=== PATIENT | female | born 1945 | race Caucasian/White ===

== ENCOUNTER 2019-05-11 14:12 | Emergency (ER) | payer MEDICARE ==
--- OUTSIDE RECORDS SUMMARY | 2019-05-11 14:38 | XMS REPORT | Continuity of Care Document ---
:1945 External Reference #:[id number] Author Name Alok Higgins DO Address [address] [place] [address] Care Team Providers Name Role Phone Luisa Carlos MD - Cardiovascular Care Team Information Automobile Designer Disease Abe Browning MD - Neurology Care Team Information Automobile Designer [phone] [facility]-Ray Care Team Information Automobile Designer [phone] [facility] Care Team Information Automobile Designer Unavailable Problems Active Problems Provider Date Aortic valve disorder Alok Higgins DO Onset: 09/15/2012 Mixed hyperlipidemia Alok Higgins DO Onset: 09/15/2012 Low back pain Alok Higgins DO Onset: 08/18/2012 Tobacco user Alok Higgins DO Onset: 08/18/2012 Benign essential hypertension Alok Higgins DO Onset: 08/18/2012 Gastroesophageal reflux disease Alok Higgins DO Onset: 08/18/2012 Depressive disorder Alok Higgins DO Onset: 08/18/2012 Epilepsy Alok Higgins DO Onset: 08/18/2012 Insomnia Alok Higgins DO Onset: 08/18/2012 Pure hypercholesterolemia Alok Higgins DO Onset: 05/27/2014 Peptic reflux disease Randi Morales PA Onset: 07/19/2014 Transient cerebral ischemia Alok Higgins DO Onset: 08/09/2014 Hypertensive disorder Onset: 03/08/2015 Right inguinal hernia Onset: 02/05/2015 Aortic valve stenosis Onset: 03/01/2014 Congestive heart failure Onset: 03/01/2014 Chest pain Onset: 03/01/2014 Coronary arteriosclerosis Onset: Intestinal obstruction Onset: Hiatal hernia Onset: Kidney stone Onset: Anemia Onset: Congestive heart failure Onset: Sciatica Onset: Inguinal hernia Onset: Social History Type Date Description Comments Sex Unknown Tobacco Use Start: Unknown End: Former Cigarette Smoker 1/2 Unknown Pack Daily ETOH Use Denies alcohol use Recreational Drug Use Denies Drug Use Tobacco Use Start: Unknown Patient has never smoked Smoking Status Reviewed: 05/04/18 Patient has never smoked Allergies, Adverse Reactions, Alerts Active Allergies Reaction Severity Comments Date Morphine 08/18/2012 Latex 08/18/2012 Elastic 05/27/2014 Lipitor 03/02/2014 Erythromycin Nausea And Vomiting 03/01/2014 Morphine And Related Anaphylaxis, Itching Severe 03/01/2014 Cymbalta Disoriented 08/02/2015 Venlafaxine 05/12/2018 Zoloft 05/18/2018 Medications Active Medications SIG Qnty Indications Ordering Date Provider Famotidine take 1 tablet 60tabs Alok Higgins, 03/16/2019 20mg Tablets by mouth twice DO a day Oxycodone HCL 1-2 by mouth 360tabs Alok Higgins, 12/30/2018 5mg Tablets every 4 hours DO as needed severe pain Vitamin D (Ergocalciferol) take one 12caps Alok Higgins, 10/12/2018 [place] [id number] Capsules mouth every week Losartan Potassium Take One 90tabs Alok Higgins, 09/19/2018 100mg Tablets Tablet By DO Mouth Every Day Bupropion Hydrochloride ER Take One 90tabs F33.1 Alok Higgins, 2018 (XL) Tablet By DO 300mg Tablets ER 24HR Mouth Every Day Metoprolol Succinate ER Take One 90tabs I10 Alok Higgins, 07/31/2016 100mg Tablet By DO Tablets ER 24HR Mouth Every Day Tizanidine HCL take one 180tabs Alok Higgins, 09/18/2014 4mg Tablets tablet by DO mouth twice a day as needed for muscle spasm Aspirin 1 by mouth OTC G45.9 Alok Higgins, 08/09/[address] daily DO Amlodipine Besylate 1 by mouth qd Unknown 10mg Tablets Allergy 24-HR 1 by mouth Unknown 180mg Tablets every day Ezetimibe 1 by mouth Unknown 10mg Tablets every day Hydrochlorothiazide 1 by mouth Unknown 25mg Tablets every day Spironolactone 1 by mouth Unknown 25mg Tablets every day Stool Softener 1 by mouth qd Unknown 100mg Capsules History Medications Fluconazole 1 by mouth x 1, 2tabs Alok Higgins, 01/18/2019 - 150mg Tablets then repeat DO 01/30/2019 again 5 days later if needed. Nitrofurantoin Monohyd 1 by mouth twice 14caps Alok Higgins, 2018 - Macro a day DO 10/23/2018 100mg Capsules Immunizations CPT Code Status Date Vaccine Reaction Lot # [id number] Given 03/21/2018 Fluzone Highdose Age 65 And Over Preservative & Antibiotic Free 20944 Given 06/28/2017 Fluzone Highdose Age 65 And Over Preservative & Antibiotic Free 28253 Given 03/17/2016 Prevnar 13 Pneumococal Conjugate Vaccine [facility] 68189 Given 03/17/2016 Fluzone Highdose Age 65 And Over [facility] Preservative & Antibiotic Free 15570 Given 02/14/2014 Pneumococcal 23 Immunization Adult Or Immunosuppressed Patient 31835 Given 02/21/2013 Afluria Or Fluvirin Flu Vac Intramuscular Vital Signs Date Vital Result Comment 03/16/2019 3:23pm Body Temperature 100.4 F Weight 158.00 lb Heart Rate 78 /min BP Systolic 144 mmHg BP Diastolic 80 mmHg Respiratory Rate 20 /min Height 60 inches 5'0" O2 % BldC Oximetry 97 % BMI (Body Mass Index) 30.9 kg/m2 01/30/2019 1:17pm Weight 163.00 lb Heart Rate 60 /min BP Systolic 156 mmHg BP Diastolic 86 mmHg Respiratory Rate 20 /min Height 60 inches 5'0" BMI (Body Mass Index) 31.8 kg/m2 Results Test Acquired Date Facility Test Result H/L Range Note Drugs Of 03/16/2019 [facility] Amphetamines,Ur NEGATIVE <1000 ng/mL Abuse,Urine-[facility] Barbiturates,Urine NEGATIVE <200 ng/mL Benzodiazepines, Urine NEGATIVE <200 ng/mL Bupernorphrine/Norbu,Urine NEGATIVE <10 ng/mL Cocaine Metabolites,Urine NEGATIVE <300 ng/mL Methadone,Urine NEGATIVE <300 ng/mL Opiates,Urine POSITIVE Abnormal <300 ng/mL Oxycodone,Urine POSITIVE Abnormal <100 ng/mL Phencyclidine,Urine NEGATIVE <25 ng/mL Cannabinoids,Urine NEGATIVE <50 ng/mL Laboratory test finding 03/16/2019 [facility] Urine Culture <pending> Basic ([facility]) 01/27/2019 [facility] Sodium 139 mmol/L 135-146 1 Potassium 5.4 mmol/L High 3.5-5.2 Chloride# 109 mmol/L 97-110 2 Carbon Dioxide 21 mmol/L Low 24-34 Glucose 85 mg/dL 70-105 BUN 28 mg/dL High 6-26 Creatinine 1.4 mg/dL 0.5-1.4 Calcium 8.9 mg/dL 8.5-10.5 3 Female Egfr 38 Low >60 4 Male Egfr 50 Low >60 5 Anion Gap 9 mmol/L 5-15 6 Basic ([facility]) 01/13/2019 [facility] Sodium 139 mmol/L 135-146 7 Potassium 4.6 mmol/L 3.5-5.2 Chloride# 105 mmol/L 97-110 8 Carbon Dioxide 24 mmol/L 24-34 Glucose 91 mg/dL 70-105 BUN 28 mg/dL High 6-26 Creatinine 1.8 mg/dL High 0.5-1.4 Calcium 8.6 mg/dL 8.5-10.5 9 Female Egfr 27 Low >60 10 Male Egfr 36 Low >60 11 Anion Gap 10 mmol/L 5-15 12 CBC 01/07/2019 [facility] White Blood Count 12.9 K/uL High 3.1-10.7 13 (315)- - Red Blood Count 3.30 M/uL Low 3.90-5.40 Hemoglobin 10.0 gm/dL Low 11.6-15.8 Hematocrit 30.7 % Low 36.0-46.1 Mean Cell Volume 93.0 fl Normal 80.9-99.0 Mean Corpuscular HGB 30.3 pg Normal 25.9-32.7 Mean Corpuscular HGB Conc 32.6 g/dL Normal 30.8-34.3 Platelet Count 197 K/uL Normal 155-360 Red Cell Distri Width SD 47.9 fl High 36-47 Red Cell Distri Width %CV 14.2 % Normal 11.7-14.4 Mean Platelet Volume 11.5 fl Normal 8.9-12.4 NRBC % 0.0 /100WBC < 10/ 100 WBC Laboratory test 01/07/2019 [facility] Act Partial 33.6 seconds Normal 23.4-35.0 finding (315)- - Thrombo Time Lactic Acid 01/07/2019 [facility] Lactic Acid 1.8 mmol/L Normal 0.4-1.9 14 (315)- - Lab Reflex >2.0 for Sepsis? Y Comprehensive Metabolic 01/07/2019 [facility] Glucose 111 mg/dL High 74-106 Panel (315)- - BUN 35 mg/dL High 7-18 Creatinine 1.9 mg/dL High 0.6-1.3 Glom Filtration Rate, Estimate 28 mL/min >60 If 34 mL/min >60 15 BUN/Creat 18.4 ratio Sodium 139 mmol/L Normal 136-145 Potassium 5.2 mmol/L High 3.5-5.1 Chloride 112 mmol/L High 98-107 Carbon Dioxide 20 mmol/L Low 21-32 Anion Gap 7 mEq/L Low 8-16 Calcium 8.5 mg/dL Normal 8.5-10.1 Total Protein 7.1 g/dL Normal 6.4-8.2 Albumin 3.2 g/dL Low 3.4-5.0 Globulin 3.9 g/dL Normal 1.9-4.3 Alb/Glob 0.8 ratio Bilirubin,Total 0.6 mg/dL Normal 0.2-1.0 Sgot/Ast 13 U/L Low 15-37 16 SGPT/Alt 13 U/L Normal 12-78 Alkaline Phosphatase 102 U/L Normal 45-117 Laboratory test 01/07/2019 [facility] NT-proBNP 4039.0 pg /mL High <125 finding (315)- - Troponin-I < 0.015 ng/mL 17 CBS W/Automated 01/07/2019 [facility] White Blood 11.6 K/ uL High 3.1-10.7 Diff (315)- - Count Red Blood Count 3.57 M/uL Low 3.90-5.40 Hemoglobin 10.9 gm/dL Low 11.6-15.8 Hematocrit 33.4 % Low 36.0-46.1 Mean Cell Volume 93.6 fl Normal 80.9-99.0 Mean Corpuscular HGB 30.5 pg Normal 25.9-32.7 Mean Corpuscular HGB Conc 32.6 g/dL Normal 30.8-34.3 Platelet Count 237 K/uL Normal 155-360 Red Cell Distri Width SD 47.9 fl High 36-47 Red Cell Distri Width %CV 14.2 % Normal 11.7-14.4 Mean Platelet Volume 11.4 fl Normal 8.9-12.4 Neut% 76.8 % High 40.4-72.8 Lymph % 13.5 % Low 20.0-42.0 [place] % 7.3 % Normal 4.3-13.2 Eo% 1.5 % Normal 0.0-6.6 Bas% 0.4 % Normal 0.0-1.1 Immature Grans 0.5 % Normal 0.0-5.0 NRBC % 0.0 /100WBC < 10/ 100 WBC Neut# 8.90 K/uL High 1.8-7.0 Lymph # 1.56 K/uL Normal 1.0-4.0 [place] # 0.84 K/uL Normal 0.3-0.9 Eos # 0.17 K/uL Normal 0.0-0.5 Baso # 0.05 K/uL Normal 0.0-0.1 Immature Grans Absolute 0.06 K/uL NRBC # 0.00 K/uL Laboratory test 01/07/2019 [facility] Slide Review DIFF ORDERED 18 finding (315)- - Differential-WBC 01/07/2019 [facility] Total Cells 100 # CELLS Confirm (315)- - Counted Band% 22 % Critical high 0-8 Neutrophils% 58 % Normal 33-73 Lymph% 12 % Low 20-42 Atypical Lymph% 3 % Normal 0-7 Monocyte% 5 % Normal 0-10 Platelet Estimate NORMAL Poikilocytosis 1+ Ovalocytes 0-1+ Stomatocyte 1+ Protime 01/07/2019 [facility] Protime 13.4 seconds Normal 12.0-14.4 (315)- - Inr 1.0 Normal 0.9-1.1 19 Laboratory test 01/07/2019 [facility] D-Dimer, 8.30 Critical 20 finding (315)- - Quantitative ug/mL high Urinalysis With 01/07/2019 [facility] Urine Color YELLOW Yellow Microscopic (315)- - Urine Clarity CLEAR Clear Urine Glucose - Dipstick NEGATIVE mg/dL Negative Urine Bilirubin - Dipstick SMALL Abnormal Negative Urine Ketone NEGATIVE mg/dL Negative Urine Specific Sarah 1.025 Normal 1.010-1.030 Urine Blood NEGATIVE Negative Urine PH 5.5 Low 6.5-7.5 Urine Protein - Dipstick TRACE mg/dL Negative Urine Urobilinogen - Dipstick 0.2 E.U./dL Normal 0.2-1.0 Urine Nitrite - Dipstick NEGATIVE Negative Urine Leuk Esterase MODERATE Abnormal Negative Urine RBC 0-2 rbc/hpf 0-2 Urine WBC 5-10 wbc/hpf 0-7 Urine Epithelial Cells MODERATE /lpf None Seen 21 Urine Bacteria MODERATE Abnormal None Seen Urine Amorph Sediment SMALL Negative Source: URINE, CLEAN CAT <SEE NOTE> 22 Urine Culture 01/07/2019 [facility] Urine Culture MIXED URETHRAL F 23, 24 (315)- - <SEE NOTE> Quantity > 100,000 CFU/mL 25 Drugs Of 10/12/2018 [facility] Amphetamines,Urine NEGATIVE <1000 ng/mL Abuse,Urine-[facility] Barbiturates,Urine NEGATIVE <200 ng/mL Benzodiazepines, Urine NEGATIVE <200 ng/mL Bupernorphrine/Norbu,Urine NEGATIVE <10 ng/mL Cocaine Metabolites,Urine NEGATIVE <300 ng/mL Methadone,Urine NEGATIVE <300 ng/mL Opiates,Urine POSITIVE Abnormal <300 ng/mL Oxycodone,Urine POSITIVE Abnormal <100 ng/mL Phencyclidine,Urine NEGATIVE <25 ng/mL Cannabinoids,Urine NEGATIVE <50 ng/mL Laboratory test 10/12/2018 [facility] Urine Culture Microbiology res Abnormal 26 finding <SEE NOTE> 1 Updated reference range on new analyzer 2 Updated reference range on new analyzer 3 Updated reference range 09-14-2018 4 Concerning GFR Guidelines for Americans: Normal function or mild renal disease, if clinically at risk: >/= 60 mL/min Moderately decreased: 30-59 Severely decreased: 15-29 Renal failure: <15 There is reduced accuracy above 60ml/min/1.73 m squared, but the numeric value may be clinically useful in the near 60 range 5 Concerning GFR Guidelines: Normal function or mild renal disease, if clinically at risk: >/= 60 mL/min Moderately decreased: 30-59 Severely decreased: 15-29 Renal failure: <15 There is reduced accuracy above 60ml/min/1.73 m squared, but the numeric value may be clinically useful in the near 60 range Glomerular Filtration Rate (GFR) is estimated based on the CKD-EPI equation, which assumes a steady state for creatinine as recommended by the National Kidney Disease Education Program in conjunction with the National Institutes of Health and the National Kidney Foundation. Clinical conditions in which it may be necessary to measure GFR by using clearance methods include extremes of age and body size, severe malnutrition or obesity, diseases of skeletal muscle, paraplegia or quadriplegia, vegetarian diet, rapidly changing kidney function, and calculation of the dose of potentially toxic drugs that are excreted by the kidneys. 6 Updated Reference Range 7 Updated reference range on new analyzer 8 Updated reference range on new analyzer 9 Updated reference range 09-14-2018 10 Concerning GFR Guidelines for Americans: Normal function or mild renal disease, if clinically at risk: >/= 60 mL/min Moderately decreased: 30-59 Severely decreased: 15-29 Renal failure: <15 There is reduced accuracy above 60ml/min/1.73 m squared, but the numeric value may be clinically useful in the near 60 range 11 Concerning GFR Guidelines: Normal function or mild renal disease, if clinically at risk: >/= 60 mL/min Moderately decreased: 30-59 Severely decreased: 15-29 Renal failure: <15 There is reduced accuracy above 60ml/min/1.73 m squared, but the numeric value may be clinically useful in the near 60 range Glomerular Filtration Rate (GFR) is estimated based on the CKD-EPI equation, which assumes a steady state for creatinine as recommended by the National Kidney Disease Education Program in conjunction with the National Institutes of Health and the National Kidney Foundation. Clinical conditions in which it may be necessary to measure GFR by using clearance methods include extremes of age and body size, severe malnutrition or obesity, diseases of skeletal muscle, paraplegia or quadriplegia, vegetarian diet, rapidly changing kidney function, and calculation of the dose of potentially toxic drugs that are excreted by the kidneys. 12 Updated Reference Range 13 PULM EMBOLISM, PNEUMONIA, HEMO 14 SHORT OF BREATH 15 Note: Persistent reduction for 3 months or more in an eGFR <60 mL/min/1.73 m2 defines CKD. Patients with eGFR values >/=60 mL/min/1.73 m2 may also have CKD if evidence of persistent proteinuria is present. The original MDRD equation for estimated GFR is not valid for patients less than 18 years of age. Additional information may be found at www.kdoqi.org. 16 Values below the stated reference ranges of AST and ALT can be seen in normal populations. Clinical correlation is suggested. 17 0.0 - 0.045 ng/mL: Normal 0.046 - 0.5 ng/mL: Suggestive 0.6 - 1.5 ng/mL: Consistent 18 CALLED BANDS TO BREANN V AT 1654 01/07/19 by LAB.GT Is patient on anticoagulants? Coumadin 19 THERAPEUTIC INR RANGE: 2.0 - 3.0 DVT, Pulmonary embolus, prophylaxis against venous thrombosis or systemic embolization in high risk patients. 2.5 - 3.5 Mechanical heart valves 20 <=0.49 ug/mL - Low likelihood of DIC, DVT or Pulmonary Embolism >0.49 ug/mL - Additional testing should be done to rule out DIC, DVT, or Pulmonary embolism as clinically indicated. ([facility] has established a 97.89% negative predictive value for thrombotic disease when a cutoff value of 0.5 ug/mL is used.) 21 POSSIBLE UROGENITAL CONTAMINATION. 22 URINE, CLEAN CATCH 23 PULM EMBOLISM, PNEUMONIA, HEMO 24 MIXED URETHRAL SOY 25 > 100,000 CFU/mL SPECIMEN IS A MIX OF GRAM NEGATIVE AND GRAM POSITIVE ORGANISMS. UNABLE TO DETERMINE WHICH ORGANISMS ARE FROM THE URINARY TRACT OR THE RESULT OF SKIN VAGINAL PERIANAL CONTAMINATION DURING COLLECTION. SUGGEST REPEAT SPECIMEN IF CLINICALLY INDICATED. 26 Microbiology results SOURCE Clean Catch Midstream COLONY COUNT 25,000 CFU/ML PRELIMINARY RESULT Gram positive cocci. ID & Sensitivity to Follow. 10/13/2018 2:48 PM 1) Enterococcus faecalis 2) Staph aureus identified. Sensitivities to follow. 11:10AM 10/14/2018 Enterococcus faecalis (Isolate 1) Ampicillin <=2 S Ciprofloxacin >2 R Gent. Synergy <=500 S Levofloxacin >4 R Linezolid 2 S Nitrofurantoin <=32 S Penicillin 2 S Tetracycline >8 R Vancomycin 2 S FINAL RESULT Staphylococcus aureus (Isolate 2) Sensitivity Analysis Isolate 2 --------- CEFTRIAXONE <=8 S CIPROFLOXACIN >2 R GENTAMYCIN <=4 S LINEZOLID 4 S NITROFURANTOIN <=32 S OXACILLIN <=0.25 S PENICILLIN 2 ELLEN TETRACYCLINE <=4 S TRIMETHOPRIM/SULFAMETHOXAZ <=0.5/9.5 S VANCOMYCIN 1 S S=Sensitive;I=Indeterminate;R=Resistant Procedures Date Code Description Status 01/13/2019 84138 Measure Blood Oxygen Level Single Determination Completed Medical Devices Description No Information Available Encounters Type Date Location Provider Dx Diagnosis Office Visit 01/30/2019 1:15p [facility] Alok Higgins DO 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, unsp J18.9 Pneumonia, unspecified organism B37.3 Candidiasis of vulva and vagina M25.572 Pain in LEFT ankle and joints of LEFT foot K40.90 Unil inguinal hernia, w/o obst or gangr, not spcf as recur M54.16 Radiculopathy, lumbar region R10.31 RIGHT lower quadrant pain M54.31 Sciatica, RIGHT side F41.9 Anxiety disorder, unspecified D64.9 Anemia, unspecified E78.2 Mixed hyperlipidemia N20.0 Calculus of kidney I10 Essential (primary) hypertension G45.9 Transient cerebral ischemic attack, unspecified R60.0 Localized edema M54.6 Pain in thoracic spine M25.562 Pain in LEFT knee M16.11 Unilateral primary osteoarthritis, RIGHT hip G40.909 Epilepsy, unsp, not intractable, without status epilepticus F11.20 Opioid dependence, uncomplicated R30.0 Dysuria E55.9 Vitamin D deficiency, unspecified F33.1 Major depressive disorder, recurrent, moderate I65.29 Occlusion and stenosis of unspecified carotid artery E66.9 Obesity, unspecified Z68.31 Body mass index (BMI) 31.0-31.9, adult Office Visit 12/12/2018 3:00p [facility] Alok Higgins DO F33.1 Major depressive disorder, recurrent, moderate I65.29 Occlusion and stenosis of unspecified carotid artery M25.572 Pain in LEFT ankle and joints of LEFT foot K40.90 Unil inguinal hernia, w/o obst or gangr, not spcf as recur M54.16 Radiculopathy, lumbar region R10.31 RIGHT lower quadrant pain M54.31 Sciatica, RIGHT side F41.9 Anxiety disorder, unspecified D64.9 Anemia, unspecified E78.2 Mixed hyperlipidemia N20.0 Calculus of kidney I10 Essential (primary) hypertension G45.9 Transient cerebral ischemic attack, unspecified R60.0 Localized edema M54.6 Pain in thoracic spine M25.562 Pain in LEFT knee M16.11 Unilateral primary osteoarthritis, RIGHT hip G40.909 Epilepsy, unsp, not intractable, without status epilepticus F11.20 Opioid dependence, uncomplicated R30.0 Dysuria E55.9 Vitamin D deficiency, unspecified E66.9 Obesity, unspecified Z68.32 Body mass index (BMI) 32.0-32.9, adult Office Visit 10/12/2018 3:00p [facility] Alok Higgins DO F33.1 Major depressive disorder, recurrent, moderate I65.29 Occlusion and stenosis of unspecified carotid artery M25.572 Pain in LEFT ankle and joints of LEFT foot K40.90 Unil inguinal hernia, w/o obst or gangr, not spcf as recur M54.16 Radiculopathy, lumbar region R10.31 RIGHT lower quadrant pain M54.31 Sciatica, RIGHT side F41.9 Anxiety disorder, unspecified D64.9 Anemia, unspecified E78.2 Mixed hyperlipidemia N20.0 Calculus of kidney I10 Essential (primary) hypertension G45.9 Transient cerebral ischemic attack, unspecified R60.0 Localized edema M54.6 Pain in thoracic spine M25.562 Pain in LEFT knee M16.11 Unilateral primary osteoarthritis, RIGHT hip G40.909 Epilepsy, unsp, not intractable, without status epilepticus F11.20 Opioid dependence, uncomplicated R30.0 Dysuria E55.9 Vitamin D deficiency, unspecified E66.9 Obesity, unspecified Z68.32 Body mass index (BMI) 32.0-32.9, adult Assessments Date Code Description Provider 03/16/2019 M25.572 Pain in LEFT ankle and joints of LEFT foot Alok Higgins DO 03/16/2019 K40.90 Unilateral inguinal hernia, without Alok Higgins DO obstruction or gangrene, 03/16/2019 M54.16 Radiculopathy, lumbar region Alok Higgins DO 03/16/2019 R10.31 RIGHT lower quadrant pain Alok Higgins DO 03/16/2019 M54.31 Sciatica, RIGHT side HigginsAlok, DO 03/16/2019 F41.9 Anxiety disorder, unspecified Higgins Alok, DO 03/16/2019 D64.9 Anemia, unspecified Higgins Alok, DO 03/16/2019 E78.2 Mixed hyperlipidemia HigginsAlok, DO 03/16/2019 N20.0 Calculus of kidney Higgins, Alok, DO 03/16/2019 I10 Essential (primary) hypertension Higgins, Alok, DO 03/16/2019 G45.9 Transient cerebral ischemic attack, Higgins, Alok, DO unspecified 03/16/2019 R60.0 Localized edema HigginsAlok, DO 03/16/2019 M54.6 Pain in thoracic spine Higgins, Alok, DO 03/16/2019 M25.562 Pain in LEFT knee HigginsAlok, DO 03/16/2019 M16.11 Unilateral primary osteoarthritis, RIGHT hip Ronaldo Alok, DO 03/16/2019 G40.909 Epilepsy, unspecified, not intractable, Higgins, Alok, DO without status epile 03/16/2019 F11.20 Opioid dependence, uncomplicated HigginsAlok, DO 03/16/2019 R30.0 Dysuria HigginsAlok, DO 03/16/2019 E55.9 Vitamin D deficiency, unspecified Higgins, Alok, DO 03/16/2019 F33.1 Major depressive disorder, recurrent, Higgins, Alok, DO moderate 03/16/2019 I65.29 Occlusion and stenosis of unspecified carotid Ronaldo Alok, DO artery 03/16/2019 K21.9 Gastro-esophageal reflux disease without Higgins Alok, esophagitis 03/16/2019 E66.9 Obesity, unspecified Higgins, Alok, DO 03/16/2019 R11.2 Nausea with vomiting, unspecified Higgins, Alok, DO 03/16/2019 Z68.30 Body mass index (BMI) 30.0-30.9, adult Higgins, Alok, DO 03/16/2019 F11.20 Opioid dependence, uncomplicated [facility] 01/30/2019 N25.9 Disorder resulting from impaired renal HigginsAlko farias, DO tubular function, unspecified 01/30/2019 J18.9 Pneumonia, unspecified organism HigginsAlok, DO 01/30/2019 B37.3 Candidiasis of vulva and vagina Alok Higgins, DO 01/30/2019 M25.572 Pain in LEFT ankle and joints of LEFT foot HigginsAlok , DO 01/30/2019 K40.90 Unilateral inguinal hernia, without Higgins, Alok, DO obstruction or gangrene, 01/30/2019 M54.16 Radiculopathy, lumbar region HigginsAlok, DO 01/30/2019 R10.31 RIGHT lower quadrant pain HigginsAlok, DO 01/30/2019 M54.31 Sciatica, RIGHT side HigginsAlok, DO 01/30/2019 F41.9 Anxiety disorder, unspecified Higgins Alok, DO 01/30/2019 D64.9 Anemia, unspecified HigginsAlok, DO 01/30/2019 E78.2 Mixed hyperlipidemia Higgins, Alok, DO 01/30/2019 N20.0 Calculus of kidney HigginsAlok, DO 01/30/2019 I10 Essential (primary) hypertension HigginsAlok, DO 01/30/2019 G45.9 Transient cerebral ischemic attack, Higgins, Alok, DO unspecified 01/30/2019 R60.0 Localized edema HigginsAlok, DO 01/30/2019 M54.6 Pain in thoracic spine HigginsAlok, DO 01/30/2019 M25.562 Pain in LEFT knee HigginsAlok, DO 01/30/2019 M16.11 Unilateral primary osteoarthritis, RIGHT hip HigginsAlok, DO 01/30/2019 G40.909 Epilepsy, unspecified, not intractable, Higgins, Alok, DO without status epile 01/30/2019 F11.20 Opioid dependence, uncomplicated Ronaldo Alok, DO 01/30/2019 R30.0 Dysuria Higgins, Alok, DO 01/30/2019 E55.9 Vitamin D deficiency, unspecified Higgins, Alok, DO 01/30/2019 F33.1 Major depressive disorder, recurrent, Higgins, Alok, DO moderate 01/30/2019 I65.29 Occlusion and stenosis of unspecified carotid Higgins, Alok, DO artery 01/30/2019 E66.9 Obesity, unspecified Higgins, Alok, DO 01/30/2019 Z68.31 Body mass index (BMI) 31.0-31.9, adult HigginsAmbroseew, DO 01/27/2019 N25.9 Disorder resulting from impaired renal Higgins, Alok, DO tubular function, unspecified 01/27/2019 N25.9 Disorder resulting from impaired renal Schedule, Laboratory tubular function, unspecified 01/27/2019 N25.9 Disorder rslt from impaired renal tubular [facility] function, unsp 01/13/2019 N25.9 Disorder resulting from impaired renal Higgins, Alok, DO tubular function, unspecified 01/13/2019 J18.9 Pneumonia, unspecified organism Higgins, Alok, DO 01/13/2019 E66.9 Obesity, unspecified Higgins, Alok, DO 01/13/2019 B37.3 Candidiasis of vulva and vagina Ambrose Higginsew, DO 01/13/2019 N25.9 Disorder resulting from impaired renal Higgins, Alok, DO tubular function, unspecified 01/13/2019 R19.03 RIGHT lower quadrant abdominal swelling, mass HigginsAlok farias, DO and lump 01/13/2019 Z68.31 Body mass index (BMI) 31.0-31.9, adult HigginsAmbroseew, DO 01/13/2019 N25.9 Disorder resulting from impaired renal Schedule, Laboratory tubular function, unspecified 01/13/2019 N25.9 Disorder rslt from impaired renal tubular [facility] function, unsp 12/12/2018 F33.1 Major depressive disorder, recurrent, HigginsAlok, DO moderate 12/12/2018 I65.29 Occlusion and stenosis of unspecified carotid HigginsAlok farias, DO artery 12/12/2018 M25.572 Pain in LEFT ankle and joints of LEFT foot Alok Higgins , DO 12/12/2018 K40.90 Unilateral inguinal hernia, without HigginsAlok, DO obstruction or gangrene, 12/12/2018 M54.16 Radiculopathy, lumbar region Alok Higgins, DO 12/12/2018 R10.31 RIGHT lower quadrant pain Alok Higgins, DO 12/12/2018 M54.31 Sciatica, RIGHT side HigginsAlok farias, DO 12/12/2018 F41.9 Anxiety disorder, unspecified HigginsAlok, DO 12/12/2018 D64.9 Anemia, unspecified Alok Higgins, DO 12/12/2018 E78.2 Mixed hyperlipidemia Alok Higgins, DO 12/12/2018 N20.0 Calculus of kidney Alok Higgins, DO 12/12/2018 I10 Essential (primary) hypertension Alok Higgins, DO 12/12/2018 G45.9 Transient cerebral ischemic attack, HigginsAlok, DO unspecified 12/12/2018 R60.0 Localized edema lAok Higgins, DO 12/12/2018 M54.6 Pain in thoracic spine Alok Higgins, DO 12/12/2018 M25.562 Pain in LEFT knee Alok Higgins, DO 12/12/2018 M16.11 Unilateral primary osteoarthritis, RIGHT hip Alok Higgins, DO 12/12/2018 G40.909 Epilepsy, unspecified, not intractable, HigginsAlok, DO without status epile 12/12/2018 F11.20 Opioid dependence, uncomplicated Alok Higgins, DO 12/12/2018 R30.0 Dysuria Alok Higgins, DO 12/12/2018 E55.9 Vitamin D deficiency, unspecified Alok Higgins, DO 12/12/2018 E66.9 Obesity, unspecified Alok Higgins, DO 12/12/2018 Z68.32 Body mass index (BMI) 32.0-32.9, adult Alok Higgins, DO 10/12/2018 F33.1 Major depressive disorder, recurrent, HigginsAlok, DO moderate 10/12/2018 I65.29 Occlusion and stenosis of unspecified carotid HigginsAlok, DO artery 10/12/2018 M25.572 Pain in LEFT ankle and joints of LEFT foot HigginsAlok , DO 10/12/2018 K40.90 Unilateral inguinal hernia, without Higgins Alok, DO obstruction or gangrene, 10/12/2018 M54.16 Radiculopathy, lumbar region Higgins, Alok, DO 10/12/2018 R10.31 RIGHT lower quadrant pain Higgins, Alok, DO 10/12/2018 M54.31 Sciatica, RIGHT side Alok Higgins, DO 10/12/2018 F41.9 Anxiety disorder, unspecified Alok Higgins, DO 10/12/2018 D64.9 Anemia, unspecified Alok Higgins, DO 10/12/2018 E78.2 Mixed hyperlipidemia Alok Higgins, DO 10/12/2018 N20.0 Calculus of kidney Alok Higgins, DO 10/12/2018 I10 Essential (primary) hypertension Alok Higgins, DO 10/12/2018 G45.9 Transient cerebral ischemic attack, Alok Higgins, DO unspecified 10/12/2018 R60.0 Localized edema Alok Higgins, DO 10/12/2018 M54.6 Pain in thoracic spine Alok Higgins, DO 10/12/2018 M25.562 Pain in LEFT knee Alok Higgins, DO 10/12/2018 M16.11 Unilateral primary osteoarthritis, RIGHT hip Alok Higgins, DO 10/12/2018 G40.909 Epilepsy, unspecified, not intractable, Alok Higgins, without status epile 10/12/2018 F11.20 Opioid dependence, uncomplicated Alok Higgins, DO 10/12/2018 R30.0 Dysuria Alok Higgins, DO 10/12/2018 E55.9 Vitamin D deficiency, unspecified Alok Higgins, DO 10/12/2018 E66.9 Obesity, unspecified Alok Higgins, DO 10/12/2018 Z68.32 Body mass index (BMI) 32.0-32.9, adult Alok Higgins, DO 10/12/2018 F11.20 Opioid dependence, uncomplicated [facility] 10/12/2018 R30.0 Dysuria [facility] Plan of Treatment Future Appointment(s):04/06/2019 1:45 pm - [facility]onal[facility]ok at [facility]03/16/2019 - Alok Higgins DOM25.572 Pain in LEFT ankle and joints of LEFT footFollow up: CT of the abdomen soon and will follow up with me in 1 month.K40.90 Unilateral inguinal hernia, without obstruction or gangrene,M54.16 Radiculopathy, lumbar wwevzeK10.31 RIGHT lower quadrant painNew Xrays:CT Abd/Pelvis W/O Contrast, Scheduled: 03/17/19M54.31 Sciatica, RIGHT sideF41.9 Anxiety disorder, gpfyfpmayjuD87.9 Anemia, qgaxpcaxhwjZ43.2 Mixed kfwboudaujopiiV81.0 Calculus of tdzrlkO52 Essential (primary) hypertensionComments:Today, the patient's BP is elevated at 156/86.1. The patient was advised to continue with current line of therapies which include HCTZ, Metoprolol, Losartan, Spironolactone, and Amlodipine.2. The patient will benefit from maintaining a low sodium diet.3. The patient was encouraged to monitor BP periodically at home and maintain a log of the same to bring along during the next visit for comparison.4. We will continue to monitor.G45.9 Transient cerebral ischemic attack, eykdmrijtrdE87.0 Localized fxxxhL69.6 Pain in thoracic rdqfaZ60.562 Pain in LEFT kneeM16.11 Unilateral primary osteoarthritis, RIGHT hipG40.909 Epilepsy, unspecified, not intractable, without status btgevT02.20 Opioid dependence, lqcehvhrvildhK84.0 DysuriaComments:Resolved at the present time. Will monitor for recurrence.E55.9 Vitamin D deficiency, unspecifiedComments:I would like to put you on Vitamin D replacement- you will take 1 pill every week.F33.1 Major depressive disorder, recurrent, moderateComments:Pt still having a lot of anxiety dealing with her and his medical issues. She appears to beallergic to SSRIs. Advised the patient to continue taking Bupropion 300 mg po daily. I recommendedgoing to counseling, but she refuses at this time.I65.29 Occlusion and stenosis of unspecified carotid sbvejdE12.9 Gastro-esophageal reflux disease without esophagitisComments:A script for Famotidine was provided today.Encouraged the patient to avoid spicy, greasy food, Juices containing citrus, sauce, chocolates , alcohol.Advised the patient to eat small multiple meals.Advised the patient to limit caffeine and carbonated beverages.Advised not to eat three hours prior to sleeping.Encouraged the patient to elevate the head and sleep during night.Advised to maintain a healthyweight.E66.9 Obesity, unspecifiedComments: The patient's weight has been stable since last visit. Currently weighs 163lbs. A detailed discussion was had with the patient regarding body weight and BMI. Patient was made aware about the health hazards of obesity including diabetes, hypertension, cardiac diseases, and other various risk factors. Patient was advised to maintain a healthy and low-calorie diet and a regular exercise regimen which will help lose weight.R11.2 Nausea with vomiting, unspecifiedComments:Maybe related to her right lower quadrant pain. We will obtain CT scan for further management of the symptoms. Shall call or come back if the symptoms persist or worsen. We will continue to monitor.Z68.30 Body mass index (BMI) 30.0-30.9, adultComments:Her BMI is at 30.9. She was strongly encouraged to lose weight with low-calorie diet and exercises. We will continue to monitor her weight and BMI periodically.AllNew Medication:Famotidine 20 mg - take 1 tablet by mouth twice a day Functional Status Description No Information Available Mental Status Description No Information Available Referrals Description No Information Available
--- NOTE | 2019-05-11 17:00 | ED ---
Abdominal Pain/Female - HPI Summary HPI Summary: The patient is a 73 y/o F presenting to [facility] with a chief complaint of suprapubic abdominal pain onset a few days ago. She reports that she had been admitted in a few months ago for similar abdominal pain with diagnosed UTI and PNA, and had been controlling the pain with six Oxycodone pills a day since then but recently decreased the dose to two pills a day. A few days ago, the pain returned in the lower abdomen, and she has developed nausea without vomiting or bowel movements secondary to a decreased appetite. The pain is sometimes worse with urination, and she notes right flank pain. Sharp pain is currently rated 8/10 in severity. She has taken one Oxycodone this morning for mild relief of the pain. PMHx: aortic valve replacement, HTN, HLD, cholecystectomy, hysterectomy, gastric bypass. Former smoker, no EtOH, prescribed Oxycodone use without illicit drug use. Medications reviewed. Allergies noted. - History of Current Complaint Chief Complaint: EDAbdPain Stated Complaint: RIGHT SIDE ABDOMINAL PAIN,VOMITING PER PT Time Seen by Provider: 05/11/19 16:36 Hx Obtained From: Patient Onset/Duration: Lasting Days, Still Present Timing: Constant Severity Initially: Mild Severity Currently: Moderate Pain Intensity: 8 Pain Scale Used: 0-10 Numeric Location: Suprapubic Radiates: No Character: Sharp Aggravating Factor(s): Other: - urination Alleviating Factor(s): Nothing Associated Signs and Symptoms: Positive: Decreased Appetite, Nausea, Other: - right flank pain. Negative: Vomiting Allergies/Adverse Reactions: Allergies Allergy/AdvReac Type Severity Reaction Status Date / Time morphine Allergy Itching Verified 05/11/19 14:18 Home Medications: Home Medications BuPROPion XL* [Bupropion XL*] 300 mg PO DAILY 05/11/19 [History Confirmed ] Ergocalciferol CAP* [Drisdol CAP*] 50,000 unit PO WEEKLY 05/11/19 [History Confirmed 05/11/19] Ezetimibe TAB* [Zetia TAB*] 10 mg PO DAILY 05/11/19 [History Confirmed 05/11/19] Famotidine TAB* [Pepcid 20 MG TAB*] 20 mg PO BID 05/11/19 [History Confirmed ] Losartan TAB* [Cozaar TAB*] 100 mg PO DAILY 05/11/19 [History Confirmed 05/11/19 ] Metoprolol Succinate XL TAB* [Toprol XL TAB*] 100 mg PO DAILY 05/11/19 [History Confirmed 05/11/19] Pantoprazole TAB * [Protonix TAB*] 40 mg PO DAILY 05/11/19 [History Confirmed ] Spironolactone TAB* [Aldactone TAB*] 25 mg PO DAILY 05/11/19 [History Confirmed 05/11/19] amLODIPine TAB* [Norvasc 5 mg TAB*] 10 mg PO DAILY 05/11/19 [History Confirmed 05/11/19] oxyCODONE TAB* [Roxycodone TAB 5 mg*] 2.5 mg PO Q4H PRN MDD 30mg 05/11/19 [ History Confirmed 05/11/19] PMH/Surg Hx/FS Hx/Imm Hx Endocrine/Hematology History: Denies: Hx Diabetes Cardiovascular History: Reports: Hx Hypercholesterolemia, Hx Hypertension, Other Cardiovascular Problems/Disorders - aortic valve replacement Denies: Hx Pacemaker/ICD - Surgical History Surgical History: Yes Surgery Procedure, Year, and Place: VAGUS NERVE STIMULATOR - GENERATOR REMOVED BUT HAS ABANDONED LEAD, LEAD STILL ATTACHED TO VAGUS NERVE - NO MRIS. cholecystectomy, hysterectomy, gastric bypass Infectious Disease History: No Infectious Disease History: Denies: Traveled Outside the [place] in Last 30 Days - Family History Known Family History: Positive: Hypertension - Social History Alcohol Use: None Hx Substance Use: Yes Substance Use Type: Reports: Prescribed Substance Use Comment - Amount & Last Used: oxycodone Hx Tobacco Use: Yes Smoking Status (MU): Former Smoker Review of Systems Positive: Abdominal Pain - suprapubic, Nausea, Other - decreased appetite. Negative: Vomiting Positive: flank pain - right All Other Systems Reviewed And Are Negative: Yes Physical Exam - Summary Physical Exam Summary: Appearance: The patient is well-nourished in no acute distress and in no acute pain. Skin: The skin is warm and dry, and skin color reflects adequate perfusion. HEENT: The head is normocephalic and atraumatic. The pupils are equal and reactive. The conjunctivae are clear and without drainage. Nares are patent and without drainage. Mouth reveals moist mucous membranes, and the throat is without erythema and exudate. The external ears are intact. The ear canals are patent and without drainage. The tympanic membranes are intact. Neck: The neck is supple with full range of motion and non-tender. There are no carotid bruits. There is no neck vein distension. Respiratory: Chest is non-tender. Lungs are clear to auscultation and breath sounds are symmetrical and equal. Cardiovascular: Heart is regular rate and rhythm. There is no murmur or rub auscultated. There is no peripheral edema and pulses are symmetrical and equal. Abdomen: The abdomen is soft but tender in the lower abdomen. There are normal bowel sounds heard in all four quadrants and there is no organomegaly palpated. Musculoskeletal: There is right CVA tenderness. Extremities are non-tender with full range of motion. There is good capillary refill. There is no peripheral edema or calf tenderness elicited. Neurological: Patient is alert and oriented to person, place and time. The patient has symmetrical motor strength in all four extremities. Cranial nerves are grossly intact. Deep tendon reflexes are symmetrical and equal in all four extremities. Psychiatric: The patient has an appropriate affect and does not exhibit any anxiety or depression. Triage Information Reviewed: Yes Vital Signs On Initial Exam: Initial Vitals Temp Pulse Resp BP Pulse Ox 97.3 F 66 16 122/56 98 05/11/19 14:13 05/11/19 14:13 05/11/19 14:13 05/11/19 14:13 05/11/19 14:13 Vital Signs Reviewed: Yes Procedures - Sedation Patient Received Moderate/Deep Sedation with Procedure: No Diagnostics - Vital Signs Vital Signs Temp Pulse Resp BP Pulse Ox 05/11/19 16:07 97.8 F 70 16 131/68 97 05/11/19 14:13 97.3 F 66 16 122/56 98 - Laboratory Result Diagrams: 05/11/19 17:12 05/11/19 17:12 Lab Statement: Any lab studies that have been ordered have been reviewed, and results considered in the medical decision making process. - EKG 2020 Cardiac Rate: NL - 71 bpm EKG Rhythm: Sinus Rhythm Summary of EKG Findings: EKG at 2020 reveals normal sinus rhythm at [address] depressions and T-wave inversions. No STEMI. ED physician has reviewed and interpreted this EKG. Re-Evaluation - Re-Evaluation First Eval Re-Evaluation Time: 18:15 Comment: We discussed results and plan for transfer. Patient agreeable with plan. Abdominal Pain Fem Course/Dx - Course Course Of Treatment: Ms. Ford was found to be in acute renal failure with a BUN of 100 and a creatinine of 9. She was given IV fluids carefully. Her potassium was 6.8 and she was treated with calcium as well as insulin glucose. We do not have dialysis capabilities this weekend and I contacted [facility]. They do not have dialysis capabilities either. I contacted [facility]. They do not have a room. I have contacted [facility] in [place] and I'm waiting for call back at this time. She may very well just need fluids and correction but she may need dialysis and therefore cannot keep her here. She did retain a little urine in her bladder a couple 100 cc but not enough that this is of obstructive nephropathy. - Diagnoses Provider Diagnoses: Acute renal failure - Provider Notifications Discussed Care Of Patient With: Transfer Center Instructed by Provider To: Transfer - Transfer initiated at 1825 by nurse Mariajose. At 1845, I discussed the patient's case with the transfer center, who will contact [facility] for possible transfer. [facility] is unable to perform emergency dialysis after 2100; will consult [facility]. [facility] also unable to take patient; will consult [facility]. 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 - patient needs nephrology Discharge ED - Sign-Out/Discharge Documenting (check all that apply): Patient Departure - Patient is accepted for transfer to - Discharge Plan Condition: Stable Disposition: TRANS HIGHER LVL OF CARE FAC Referrals: Alok Higgins DO [Primary Care Provider] - - Billing Disposition and Condition Condition: STABLE Disposition: Trans Higher Lvl of Care Fac - Attestation Statements Document Initiated by Scribe: Yes Documenting Scribe: Louise Fonseca Provider For Whom Noa is Documenting (Include Credential): Dr. Tommy Haro MD Scribe Attestation: ILouise scribed for Dr. Tommy Haro MD on 05/11/19 at 2203. Scribe Documentation Reviewed: Yes Provider Attestation: The documentation as recorded by the Louise joe accurately reflects the service I personally performed and the decisions made by me, Dr. Tommy Haro MD Status of Scribe Document: Viewed
[2019-05-11 17:18] LABS: ABS Basophils 0.1 10^3/ul (0-0.2); ABS Lymphocytes 1.7 10^3/ul (1.0-4.8); ABS Monocytes 0.4 10^3/ul (0-0.8); ABS Neutrophils 3.9 10^3/ul (1.5-7.7); Eosinophil % 0.4 %; Hematocrit 25 % (35-47); Lymphocyte % 28.3 %; Mean Corpuscular HGB Conc 32 g/dL (31-36); Mean Corpuscular Hemoglobin 31 pg (27-31); Mean Corpuscular Volume 97 fL (80-97); Mean Platelet Volume 9.6 fL (7.4-10.4); Nucleated Red Blood Cells % 0.1; Platelet Count 181 10^3/uL (150-450); Red Blood Count 2.59 10^6 /uL (3.70-4.87); Red Cell Distribution Width 14 % (10-15); White Blood Count 6.1 10^3/uL (3.5-10.8)
[2019-05-11 17:34] LABS: ALT 11 U/L (7-52); AST 15 U/L (13-39); Albumin 4.2 g/dL (3.2-5.2); Albumin/Globulin Ratio 1.5 (1-3); Alkaline Phosphatase 84 U/L (34-104); BUN/Creatinine Ratio 11.4 (8-20); Blood Urea Nitrogen 105 mg/dL (6-24); C Reactive Protein < 1.00 mg/L (<8.01); Calcium 6.8 mg/dL (8.6-10.3); EGFR African American 5.1 (>60); EGFR Non-African American 4.2 (>60); Globulin 2.8 g/dL (2-4); Glucose 78 mg/dL (70-100); Sodium 137 mmol/L (135-145)
[2019-05-11 17:34] LABS: Urine Appearance Cloudy; Urine Bilirubin Negative (Negative); Urine Blood 1+ (Negative); Urine Color Yellow; Urine Glucose Negative (Negative); Urine Ketones Negative (Negative); Urine Nitrite Negative (Negative); Urine Protein 1+(30 mg/dL) (Negative); Urine Specific Gravity 1.011 (1.010-1.030); Urine Urobilinogen Negative (Negative)
[2019-05-11 17:35] LABS: Urine Bacteria Absent (Absent); Urine Red Blood Cell 1+(3-5/hpf) (Absent); Urine Squamous Epithelial Cell Present (Absent); Urine White Blood Cell 3+(>20/hpf) (Absent)
[2019-05-11 17:39] LABS: Anion Gap 13 mmol/L (2-11); CO2 Carbon Dioxide 11 mmol/L (22-32); Chloride 113 mmol/L (101-111); Potassium 6.8 mmol/L (3.5-5.0)
[2019-05-11] MEDS ORDERED: Calcium Gluconate INJ* 1 GM in NS 0.9% 100 ML* 100 ML IVPB ONE (17:51)
[2019-05-11] MEDS ORDERED: NS 0.9% 100 ML* 100 ML ONE (18:08)
[2019-05-11] MEDS: Calcium Gluconate INJ* 1 GM in NS 0.9% 50 ML* 50 ML IVPB ONE (18:29)
[2019-05-11] MEDS: Dextrose 50% Syringe 50 ML* 25 GM/50 ML SYRINGE IV PUSH ONE ×2 (18:30→18:36)
[2019-05-11] MEDS: Insulin REGULAR(*) 1 UNITS UNIT IV PUSH ONE (18:35)
[2019-05-11] MEDS: Ondansetron INJ* 2 MG/ML VIAL IV ONE (19:28)
[2019-05-11] MEDS: HYDROmorphone INJ1* 1 MG/ML SYRINGE IV SLOW PU ONE (19:28)
[2019-05-11 20:52] LABS: Troponin I 0.01 ng/mL (<0.03)
[2019-05-11] MEDS: NS 0.9% 1000 ML** 1,000 ML IV ONE (21:32)
[2019-05-11 22:56] LABS: Calcium 6.8 mg/dL (8.6-10.3); EGFR African American 5.5 (>60); EGFR Non-African American 4.6 (>60)
[2019-05-11] MEDS ORDERED: Dextrose 50% VIAL 50 ml ONE (23:07)
[2019-05-11] MEDS: Dextrose 50% VIAL 50 ml IV PUSH PRN (23:21)
[2019-05-11] MEDS: HYDROmorphone INJ* 0.5 MG/0.5 ML SYRINGE IV ONE (23:47)
[2019-05-12] MEDS: HYDROmorphone INJ* 0.5 MG/0.5 ML SYRINGE IV ONE (02:58)
--- NOTE | 2019-05-12 08:23 | ED ---
Progress - Progress Note Progress Note: This pt was signed out by Dr. White at shift change on 05/12/19 at 0700 pending transfer to [place]. 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 Course/Dx - Diagnoses Provider Diagnoses: Acute renal failure Discharge ED - Sign-Out/Discharge Documenting (check all that apply): Patient Departure - TRANSFER to [facility], Receiving Sign-Out Receiving patient FROM: Timo White - Discharge Plan Condition: Stable Disposition: TRANS HIGHER LVL OF CARE FAC Referrals: Alok Higgins DO [Primary Care Provider] - - Billing Disposition and Condition Condition: STABLE Disposition: Trans Higher Lvl of Care Fac - Attestation Statements Document Initiated by Scribe: Yes Documenting Scribe: Rufina Ambrocio Provider For Whom Scribe is Documenting (Include Credential): Arias Torres MD Scribe Attestation: I, Rufina Ambrocio, scribed for Arias Torres MD on 05/12/19 at 0825. Scribe Documentation Reviewed: Yes Provider Attestation: The documentation as recorded by the Rufina joe accurately reflects the service I personally performed and the decisions made by me, Arias Torres MD Status of Scribe Document: Viewed
[2019-05-12 08:44] VITALS: BP 128/59
== END 2019-05-12 08:42 | disposition short-term general hospital (02) ==
LOC: ED 14:12
DX: N17.9 Acute kidney failure, unspecified (principal); K44.9 Diaphragmatic hernia without obstruction or gangrene; I10 Essential (primary) hypertension; E78.5 Hyperlipidemia, unspecified; Z87.891 Personal history of nicotine dependence; Z90.49 Acquired absence of other specified parts of digestive tract; Z90.710 Acquired absence of both cervix and uterus; Z98.84 Bariatric surgery status; Z95.2 Presence of prosthetic heart valve; E78.00 Pure hypercholesterolemia, unspecified; Z79.899 Other long term (current) drug therapy; Z88.5 Allergy status to narcotic agent
CPT/HCPCS: 36415; 74176; 80048; 80053; 81003; 81015; 83605; 83690; 84132; 84484; 85025; 86140; 87086; 93005; 96361; 96365; 96375; 96376; 99285; J0610; J1170; J2405